=== PATIENT | male | born 1950 | race Caucasian/White ===

== ENCOUNTER 2018-08-21 09:12 | Emergency (ER) | payer MEDICARE, OTHER ==
[~2018-08-21] VITALS: Ht 177.8 cm; Wt 77.1 kg
[2018-08-21] MEDS ORDERED: Naprosyn500 MG PO (10:26)
== END 2018-08-21 10:40 | disposition home or self-care (01) ==
LOC: ER 09:12
DX: M70.832 Other soft tissue disorders related to use, overuse and pressure, left forearm (principal)
CPT/HCPCS: 73090; 99283-25